=== PATIENT | female | born 1990 | race Caucasian/White ===

== ENCOUNTER 2018-04-18 21:06 | Inpatient (IN) | payer BC ==
[2018-04-18] MEDS ORDERED: METHYLERGONOVINE 0.2 MG/ML 1 ML AMP IM PRN (21:40)
[2018-04-18] MEDS ORDERED: TERBUTALINE 1 MG/ML VIAL SQ PRN (21:40)
[2018-04-18] MEDS ORDERED: OXYTOCIN 10 UNIT/ML 1 ML VIAL IM PRN (21:40)
[2018-04-18] MEDS ORDERED: CARBOPROST TROMETHAMINE 250 MCG/ML 1 ML AMP IM PRN (21:40)
[2018-04-18] MEDS ORDERED: LIDOCAINE 0.5% (PF) 5 MG/ML (50 ML SDV) SQ PRN (21:40)
[2018-04-18 22:19] VITALS: BMI 35.4
[2018-04-18 22:20] LABS: Basophils % (A) 0 %; Eosinophils # (A) 0.1 k/uL (0-0.7); Eosinophils % (A) 1 %; HCT 35.9 % (34.0-46.0); HGB 12.2 gm/dL (11.4-16.0); Lymphocytes # (A) 1.6 k/uL (1.0-4.8); Lymphocytes % (A) 14 %; MCH 28.5 pg (25.0-35.0); MCHC 33.9 g/dL (31.0-37.0); MCV 84.2 fL (80.0-100.0); Mean Platelet Volume 7.3; Monocytes # (A) 0.4 k/uL (0-1.0); Monocytes % (A) 4 %; Neutrophils # (A) 9.6 k/uL (1.3-7.7); Neutrophils % (A) 81 %; Platelet Count 160 k/uL (150-450); RBC 4.27 m/uL (3.80-5.40); RDW 14.1 % (11.5-15.5); WBC 11.9 k/uL (3.8-10.6)
[2018-04-18] MEDS: LACTATED RINGERS 1,000 ML IV SCH ×3 (22:31→23:47)
[2018-04-18] MEDS ORDERED: ROPIVACAINE 100 MG, fentaNYL (PF) 200 MCG in SODIUM CHLORIDE 0.9% 76 ML EPIDURAL ONE (23:16)
--- NOTE | 2018-04-19 00:30 | P.HPOB ---
History of Present Illness H&P Date: 04/19/18 Chief Complaint: Painful uterine contractions This is a 27-year-old female 6 para 3023 EDC 04/14/2018 at 40-5/7 weeks ' gestation. Patient presents tonight with strong regular uterine contractions. Fetus is been active throughout the . [place] [id number] reveals clear fluid. She denies vaginal bleeding or fluid leakage. Past medical history is essentially negative. Past surgical history is negative. Social history patient is a nonsmoker, she denies alcohol or drug use. Her 's name is Fabian. ALLERGIES include sulfa to which reports shortness of breath. Family history significant for hypertension and retinal pigmentosa. Current medications vitamins daily. Obstetric history significant for 3 previous vaginal deliveries, 8 lbs. 8 oz.-7 lbs. 9 oz. infants. history is significant for blood type A positive, rubella status immune. VDRL testing, urine culture, hepatitis B surface antigen, HIV testing, gonorrhea and chlamydia cultures, group B strep cultures all negative. One- hour Glucola 71. On exam this is a pleasant female, 5 foot 3 inches, 200 pounds, blood pressure 145/93. The general physical exam is within normal limits. No peripheral edema. Chest clear. Cervix is 9 cm, 90% effaced, -1 station, vertex presentation. heart rate in the 140s with overall fair variability. Impression: 40-5/7 weeks intrauterine , spontaneous active labor. Plan: Continue close watch and surveillance. Epidural has been placed per her request. Anticipate normal spontaneous vaginal delivery. Review of Systems Constitutional: Reports as per HPI Past Medical History Past Medical History: No Reported History History of Any Multi-Drug Resistant Organisms: MRSA Date of last positivie culture/infection: 2013 MDRO Source:: left knee Additional Past Surgical History / Comment(s): [place] Tooth Extraction Past Anesthesia/Blood Transfusion Reactions: No Reported Reaction Past Psychological History: No Psychological Hx Reported Smoking Status: Never smoker Past Alcohol Use History: None Reported Past Drug Use History: None Reported - Past Family History Father Family Medical History: Hypertension Medications and Allergies Home Medications Medication Instructions Recorded Confirmed Type Pnv,Calcium 72/Iron/Folic Acid 1 tab PO DAILY 04/18/18 04/18/18 History [ Plus Tablet] Allergies Allergy/AdvReac Type Severity Reaction Status Date / Time Sulfa (Sulfonamide Allergy Dyspnea Verified 04/18/18 21:13 Antibiotics) Exam Vital Signs Temp Pulse Resp BP 04/18/18 21:15 96.5 F L 118 H 18 145/93 Intake and Output 04/18/18 04/18/18 04/19/18 14:59 22:59 06:59 Other: Weight 90.718 kg Please see dictation under HPI Results Result Diagrams: 04/18/18 22:05 Abnormal Lab Results - Last 24 Hours (Table) 04/18/18 Range/Units 22:05 WBC 11.9 H (3.8-10.6) k/uL Neutrophils # 9.6 H (1.3-7.7) k/uL Assessment and Plan Assessment: 40-5/7 weeks intrauterine , active spontaneous labor, delivery imminent Plan: Continue close maternal and surveillance. Anticipate normal spontaneous vaginal delivery. Time with Patient: Less than 30
[2018-04-19] MEDS ORDERED: SIMETHICONE 80 MG CHEWABLE PO PRN (01:04)
[2018-04-19] MEDS ORDERED: ZOLPIDEM 5 MG TAB PO PRN (01:04)
[2018-04-19] MEDS ORDERED: HYDROCORTISONE 2.5% RECTAL CREAM 30 GM TUBE RECTAL PRN (01:04)
[2018-04-19] MEDS ORDERED: LANOLIN CREAM 5 GM TUBE TOPICAL PRN (01:04)
[2018-04-19] MEDS ORDERED: diphenhydrAMINE 50 MG CAP PO PRN (01:04)
[2018-04-19] MEDS ORDERED: WITCH HAZEL 1 EACH MED..PAD TOPICAL PRN (01:04)
[2018-04-19] MEDS ORDERED: diphenhydrAMINE 25 MG CAP PO PRN (01:04)
[2018-04-19] MEDS ORDERED: diphenhydrAMINE 50 MG/ML 1 ML VIAL IVP PRN ×2 (01:04)
[2018-04-19] MEDS ORDERED: BENZOCAINE/MENTHOL SPRAY 1 GM/SPRAY AEROSOL TOPICAL PRN (01:04)
--- NOTE | 2018-04-19 01:04 | P.PROBDLV ---
Vaginal Delivery Note - . Vaginal Delivery Note: This is a 27-year-old white female 6 para 3023 EDC 04/14/2018 at 40-5/7 weeks' gestation. Patient presented with strong regular uterine contractions. Fetus is been active throughout the . She denies vaginal bleeding or fluid leakage. is essentially unremarkable, rubella status immune, blood type A+, group B strep cultures negative. Please see my dictated history and physical for details. Spontaneous amniorrhexis revealed clear fluid. Epidural was placed per her request. Patient progressed well through the first stage of labor was judged to be completely dilated at 0045 hours. The perineal body was prepped and draped in usual sterile fashion. 's head delivered occiput anterior and restituted accordingly. There was a nuchal cord 1 that was reduced on the perineal body. The left or anterior shoulder was delivered easily from underneath the pubic symphysis at which time the oropharynx, nasopharynx, and external nares were all bulb suctioned on the perineal body. Patient was officially delivered of a liveborn male at 0047 hours. Umbilical cord is doubly clamped and ligated. He was handed to waiting nurses for evaluation where scores of 8 and 9 at one and 5 minutes respectively were given. The placenta delivered spontaneously, it was inspected and noted to be intact with trivascular cord at 0051 hours. At this time inspection of the cervix, vagina, perineum, periurethral, and perirectal areas revealed no lacerations and no defects. Total estimated blood loss 400 mL's. All sponge needle and enhancement counts are correct at the end of the procedure. Infant weighs 8 lbs. 4 oz. or 3750 g. The patient is declining circumcision for her infant son.
[2018-04-19] MEDS: IBUPROFEN 600 MG TAB PO PRN ×4 (01:15→21:34)
[2018-04-19] MEDS ORDERED: OXYTOCIN 20 UNITS/1000 ML NS 1,000 ML IV SCH (01:15)
[2018-04-19] MEDS: SENNOSIDES-DOCUSATE SODIUM 1 EACH TAB PO SCH (07:48)
[2018-04-19 15:39] VITALS: RESP 16
[2018-04-19] MEDS: ACETAMINOPHEN TAB 325 MG TAB PO PRN (16:39)
[2018-04-20] MEDS: ACETAMINOPHEN TAB 325 MG TAB PO PRN (00:38)
[2018-04-20] MEDS: SENNOSIDES-DOCUSATE SODIUM 1 EACH TAB PO SCH (04:28)
[2018-04-20] MEDS: IBUPROFEN 600 MG TAB PO PRN ×2 (05:26→12:43)
[2018-04-20 08:07] VITALS: BP 132/89; PULSE 71; TEMP 97.5
--- NOTE | 2018-04-20 08:48 | P.DS ---
Providers Date of admission: 04/18/18 21:45 Expected date of discharge: 04/20/18 Attending physician: Daniel Burciaga Primary care physician: Stated None Hospital Course: This is a 27-year-old white female 6 para 3023 EDC 04/14/2018 40-5/7 weeks' gestation. Patient presented with spontaneous amniorrhexis at home, clear to lightly stained meconium fluid. was unremarkable, group B strep cultures negative, rubella status immune, blood type A positive. Please see dictated history and physical for details. Patient requested and received an epidural. She went on to deliver a liveborn male with scores of 8 and 9 at one and 5 minutes respectively. There was a nuchal cord 1 that was easily reduced, and estimated blood loss of 400 mL's. Infant weight 8 lbs. 4 oz. or 3750 g. No perineal lacerations were sustained. Please see my dictated note for details. Today the patient is doing well. She is voiding, and bleeding passing flatus without difficulty. Vital signs are stable and she is afebrile. Fundus is firm and in the midline, symmetric and 18 week size. Extremities reveal no edema. [place] is doing well. She and her are declining option for circumcision further infant son. Patient's breasts are not engorged , her extremities are negative, she is judged to be in excellent condition for discharge home today. Patient is being discharged home with instructions to follow-up with Dr. Salomon in 6 weeks. She is reminded no intercourse, tampons or douching. She will use extra strength Tylenol or Motrin over the products as needed for pain. She will call with any fevers shakes or chills, foul smelling or copious lochia, with the passage of large blood clots, with any pain not alleviated by [id number] products, or indeed with any concerns. Patient Condition at Discharge: Good Plan - Discharge Summary New Discharge Prescriptions: No Action Pnv,Calcium 72/Iron/Folic Acid [ Plus Tablet] 1 tab PO DAILY Discharge Medication List Pnv,Calcium 72/Iron/Folic Acid [ Plus Tablet] 1 tab PO DAILY 04/18/18 [ History] Follow up Appointment(s)/Referral(s): Daniel Burciaga MD [STAFF PHYSICIAN] - 6 Weeks Discharge Disposition: HOME SELF-CARE
== END 2018-04-20 13:00 | disposition home or self-care (01) | DRG 807 ==
LOC: FBPOP 21:06 → 4FBP 21:45
PROVIDERS: ADMIT Obstetrics & Gynecology; ATTEND Obstetrics & Gynecology
PROC: 3E0R3BZ Introduction of Anesthetic Agent into Spinal Canal, Percutaneous Approach (ICD-10-PCS; principal; 2018-04-19)
PROC: 10E0XZZ Delivery of Products of Conception, External Approach (ICD-10-PCS; principal; 2018-04-19)
PROC: 00HU33Z Insertion of Infusion Device into Spinal Canal, Percutaneous Approach (ICD-10-PCS; 2018-04-19)
DX: O69.81X0 Labor and delivery complicated by cord around neck, without compression, not applicable or unspecified (principal); Z37.0 Single live birth; O77.0 Labor and delivery complicated by meconium in amniotic fluid; Z3A.40 40 weeks gestation of pregnancy; Z88.2 Allergy status to sulfonamides; Z86.14 Personal history of Methicillin resistant Staphylococcus aureus infection; Z82.49 Family history of ischemic heart disease and other diseases of the circulatory system
CPT/HCPCS: 59025; 85025; 86850; 86900; 86901; 99213

== ENCOUNTER → 2020-05-10 | Outpatient (CLI) | payer BC | END | disposition home or self-care (01) | LOC: LABWHC1 11:05 | PROVIDERS: ATTEND Pediatrics Pediatric Infectious Diseases | DX: Z20.828 Contact with and (suspected) exposure to other viral communicable diseases (principal) | CPT/HCPCS: 87635; C9803 ==

== ENCOUNTER 2020-05-20 20:42 | Emergency (ER) | payer BC ==
[2020-05-20 20:46] VITALS: RESP 18; TEMP 97.9
--- NOTE | 2020-05-20 21:04 | ED ---
General Adult HPI - General Chief complaint: Shortness of Breath Stated complaint: COVID +/SOB Time Seen by Provider: 05/20/20 20:49 Source: patient Mode of arrival: ambulatory Limitations: no limitations - History of Present Illness Initial comments: Patient presents to the ED complaining of having dyspnea and diffuse chest tightness since waking up this morning. Patient states that she was diagnosed with Covid 10 days ago. Patient states that she had had symptoms of cough, congestion, headache and fever when her symptoms began, but she states that those symptoms have since resolved. Patient denies focal neuro deficit, neck pain or stiffness, sore throat, pleuritic chest pain, hemoptysis, dizziness, palpitations, abdominal pain, nausea/vomiting/diarrhea, dysuria or urinary symptoms, decreased urine output, leg or calf swelling or pain, or any other symptoms or complaints. - Related Data Home Medications Medication Instructions Recorded Confirmed Acetaminophen Tab [Tylenol Tab] 1,000 mg PO Q6H PRN 05/20/20 05/20/20 Ascorbic Acid [Vitamin C] 1,000 mg PO DAILY 05/20/20 05/20/20 Cholecalciferol [Vitamin D3 (25 1,000 unit PO DAILY 05/20/20 05/20/20 Mcg = 1000 Iu)] Ibuprofen [Motrin Ib] 600 mg PO Q6H PRN 05/20/20 05/20/20 Multivitamins, Thera [Multivitamin 1 tab PO DAILY 05/20/20 05/20/20 (formulary)] Zinc 50 mg PO DAILY 05/20/20 05/20/20 Allergies Allergy/AdvReac Type Severity Reaction Status Date / Time Sulfa (Sulfonamide Allergy Dyspnea Verified 05/20/20 21:22 Antibiotics) Review of Systems ROS Statement: Those systems with pertinent positive or pertinent negative responses have been documented in the HPI. ROS Other: All systems not noted in ROS Statement are negative. Past Medical History Past Medical History: No Reported History History of Any Multi-Drug Resistant Organisms: MRSA Date of last positivie culture/infection: 2013 MDRO Source:: left knee Additional Past Surgical History / Comment(s): [place] Tooth Extraction Past Anesthesia/Blood Transfusion Reactions: No Reported Reaction Past Psychological History: No Psychological Hx Reported Past Alcohol Use History: None Reported Past Drug Use History: None Reported - Past Family History Father Family Medical History: Hypertension General Exam Limitations: no limitations General appearance: alert, in no apparent distress Head exam: Present: atraumatic, normocephalic Eye exam: Present: normal appearance, EOMI ENT exam: Present: normal oropharynx, mucous membranes moist Neck exam: Present: other (Trachea is in midline) Respiratory exam: Present: normal lung sounds bilaterally. Absent: respiratory distress, wheezes, rales, rhonchi Cardiovascular Exam: Present: regular rate, normal rhythm, normal heart sounds, other (Normal radial pulses bilaterally) GI/Abdominal exam: Present: soft. Absent: distended, tenderness, guarding Extremities exam: Present: other (Negative Homans sign bilaterally). Absent: tenderness, pedal edema, calf tenderness Neurological exam: Present: alert, oriented X3, CN II-XII intact. Absent: motor sensory deficit Psychiatric exam: Present: normal affect, normal mood Skin exam: Present: warm, dry, intact, normal color Course Vital Signs 05/20/20 05/20/20 20:43 21:56 Temperature 97.9 F Pulse Rate 90 Respiratory 18 18 Rate Blood Pressure 174/108 O2 Sat by Pulse 99 Oximetry - Reevaluation(s) Reevaluation #1: 05/20/20 22:27 Patient denies development of any new pain or symptoms while in the ED. Patient remains alert and breathing comfortably with a normal room air oxygen saturation. Patient is aware of her test results, and she feels comfortable going home at this time. Patient was counseled about Covid, and she was clearly explained return and follow-up instructions. Patient was instructed to have a l ow threshold for return to the ED should her symptoms worsen. Patient feels comfortable with this plan. Medical Decision Making - Medical Decision Making Patient's EKG, chest x-ray and labs are all fairly unremarkable. Patient's troponin and d-dimer are negative. Patient is breathing comfortably in the ED with clear breath sounds bilaterally and a normal room air oxygen saturation. Patient is afebrile in the ED. Patient was recently diagnosed with Covid, which I suspect may be the etiology of her symptoms, but I do not suspect a serious complication such as Covid pneumonia or pulmonary embolism. Will discharge patient home at this time. Return and follow-up instructions were clearly explained to the patient. She feels comfortable with this plan. - Lab Data Result diagrams: 05/20/20 21:43 05/20/20 21:43 Lab Results 05/20/20 05/20/20 05/20/20 Range/Units 21:43 21:43 21:43 WBC 6.1 (3.8-10.6) k/uL RBC 4.24 (3.80-5.40) m/uL Hgb 12.6 (11.4-16.0) gm/dL Hct 37.2 (34.0-46.0) % MCV 87.6 (80.0-100.0) fL MCH 29.8 (25.0-35.0) pg MCHC 34.0 (31.0-37.0) g/dL RDW 13.5 (11.5-15.5) % Plt Count 234 (150-450) k/uL MPV 6.9 Neutrophils % 52 % Lymphocytes % 41 % Monocytes % 4 % Eosinophils % 1 % Basophils % 1 % Neutrophils # 3.1 (1.3-7.7) k/uL Lymphocytes # 2.5 (1.0-4.8) k/uL Monocytes # 0.2 (0-1.0) k/uL Eosinophils # 0.1 (0-0.7) k/uL Basophils # 0.1 (0-0.2) k/uL PT 9.7 (9.0-12.0) sec INR 0.9 (<1.2) APTT 23.3 (22.0-30.0) sec D-Dimer 0.52 (<0.60) mg/L FEU Sodium 137 (137-145) mmol/L Potassium 3.5 (3.5-5.1) mmol/L Chloride 105 (98-107) mmol/L Carbon Dioxide 26 (22-30) mmol/L Anion Gap 6 mmol/L BUN 13 (7-17) mg/dL Creatinine 0.76 (0.52-1.04) mg/dL Est GFR (CKD-EPI)AfAm >90 (>60 ml/min/1.73 sqM) Est GFR (CKD-EPI)NonAf >90 (>60 ml/min/1.73 sqM) Glucose 106 H (74-99) mg/dL Plasma Lactic Acid Juan Luis (0.7-2.0) mmol/L Calcium 10.7 H (8.4-10.2) mg/dL Total Bilirubin 0.4 (0.2-1.3) mg/dL AST 63 H (14-36) U/L ALT 86 H (4-34) U/L Alkaline Phosphatase 111 (38-126) U/L Troponin I (0.000-0.034) ng/mL Total Protein 7.5 (6.3-8.2) g/dL Albumin 4.4 (3.5-5.0) g/dL HCG, Qual Not Detected 05/20/20 05/20/20 Range/Units 21:43 21:43 WBC (3.8-10.6) k/uL RBC (3.80-5.40) m/uL Hgb (11.4-16.0) gm/dL Hct (34.0-46.0) % MCV (80.0-100.0) fL MCH (25.0-35.0) pg MCHC (31.0-37.0) g/dL RDW (11.5-15.5) % Plt Count (150-450) k/uL MPV Neutrophils % % Lymphocytes % % Monocytes % % Eosinophils % % Basophils % % Neutrophils # (1.3-7.7) k/uL Lymphocytes # (1.0-4.8) k/uL Monocytes # (0-1.0) k/uL Eosinophils # (0-0.7) k/uL Basophils # (0-0.2) k/uL PT (9.0-12.0) sec INR (<1.2) APTT (22.0-30.0) sec D-Dimer (<0.60) mg/L FEU Sodium (137-145) mmol/L Potassium (3.5-5.1) mmol/L Chloride (98-107) mmol/L Carbon Dioxide (22-30) mmol/L Anion Gap mmol/L BUN (7-17) mg/dL Creatinine (0.52-1.04) mg/dL Est GFR (CKD-EPI)AfAm (>60 ml/min/1.73 sqM) Est GFR (CKD-EPI)NonAf (>60 ml/min/1.73 sqM) Glucose (74-99) mg/dL Plasma Lactic Acid Juan Luis 1.0 (0.7-2.0) mmol/L Calcium (8.4-10.2) mg/dL Total Bilirubin (0.2-1.3) mg/dL AST (14-36) U/L ALT (4-34) U/L Alkaline Phosphatase (38-126) U/L Troponin I <0.012 (0.000-0.034) ng/mL Total Protein (6.3-8.2) g/dL Albumin (3.5-5.0) g/dL HCG, Qual - Radiology Data Radiology results: image reviewed (Chest x-ray is negative) Disposition Clinical Impression: COVID-19, Dyspnea Disposition: HOME SELF-CARE Condition: Stable Instructions (If sedation given, give patient instructions): Viral Syndrome (ED), Dyspnea (ED) Additional Instructions: Return to the ER immediately should you develop new or worsening pain, increased shortness of breath/trouble breathing, feeling dizzy or faint, or new or worsening symptoms. Follow up closely with your primary care provider. Is patient prescribed a controlled substance at d/c from ED?: No Referrals: None,Stated [Primary Care Provider] - 1-2 days Pepe Bella MD [REFERRING] - 1-2 days Time of Disposition: 22:28
--- NOTE | 2020-05-20 21:16 | XR ---
EXAMINATION TYPE: XR chest 1V portable DATE OF EXAM: 05/20/2020 COMPARISON: NONE HISTORY: Shortness of breath and cough. TECHNIQUE: Single frontal view of the chest is obtained. FINDINGS: There is no focal air space opacity, pleural effusion, or pneumothorax seen. The cardiac silhouette size is within normal limits. The osseous structures are intact. IMPRESSION: No acute process.
[2020-05-20 22:01] LABS: Basophils # (A) 0.1 k/uL (0-0.2); Basophils % (A) 1 %; Eosinophils # (A) 0.1 k/uL (0-0.7); Eosinophils % (A) 1 %; HCT 37.2 % (34.0-46.0); HGB 12.6 gm/dL (11.4-16.0); Lymphocytes # (A) 2.5 k/uL (1.0-4.8); Lymphocytes % (A) 41 %; MCH 29.8 pg (25.0-35.0); MCV 87.6 fL (80.0-100.0); Mean Platelet Volume 6.9; Monocytes # (A) 0.2 k/uL (0-1.0); Monocytes % (A) 4 %; Neutrophils # (A) 3.1 k/uL (1.3-7.7); Neutrophils % (A) 52 %; Platelet Count 234 k/uL (150-450); RBC 4.24 m/uL (3.80-5.40); RDW 13.5 % (11.5-15.5); WBC 6.1 k/uL (3.8-10.6)
[2020-05-20 22:10] LABS: ALT 86 U/L (4-34); AST 63 U/L (14-36); African American GFR (CKD) >90 (>60 ml/min/1.73 sqM); Albumin 4.4 g/dL (3.5-5.0); Alkaline Phosphatase 111 U/L (38-126); Anion Gap 6 mmol/L; Blood Urea Nitrogen 13 mg/dL (7-17); Calcium 10.7 mg/dL (8.4-10.2); Carbon Dioxide 26 mmol/L (22-30); Chloride 105 mmol/L (98-107); Glucose 106 mg/dL (74-99); Non-African American GFR(CKD) >90 (>60 ml/min/1.73 sqM); Potassium 3.5 mmol/L (3.5-5.1); Sodium 137 mmol/L (137-145); Total Bilirubin 0.4 mg/dL (0.2-1.3); Total Protein 7.5 g/dL (6.3-8.2)
[2020-05-20 22:14] LABS: D-Dimer 0.52 mg/L FEU (<0.60); INR 0.9 (<1.2); Partial Thromboplastin Time 23.3 sec (22.0-30.0); Prothrombin Time 9.7 sec (9.0-12.0)
[2020-05-20 22:19] LABS: HCG,Qualitative Serum Not Detected
[2020-05-20 22:47] VITALS: BP 132/92; PULSE 70
== END 2020-05-20 22:47 | disposition home or self-care (01) ==
LOC: EC 20:42
DX: U07.1 COVID-19 (principal); Z88.2 Allergy status to sulfonamides
CPT/HCPCS: 36415; 71045; 80053; 83605; 84484; 84703; 85025; 85379; 85610; 85730; 99285